=== PATIENT | female | born 1995 | race Caucasian/White ===

== ENCOUNTER 2020-08-12 09:36 | Day surgery (SDC) | payer SELFPAY ==
[~2020-08-12] VITALS: Ht 172.7 cm; Wt 137.0 kg
[2020-08-12 10:02] VITALS: BP 146/97; PULSE 91; TEMP 97.8
[2020-08-12] MEDS ORDERED: LEXAPRO 10MG10 MG PO (10:12)
[2020-08-12] MEDS ORDERED: PRIL40 PO (10:12)
[2020-08-12 11:45] VITALS: BP 118/81; PULSE 78; TEMP 98.1
--- NOTE | 2020-08-12 11:45 | NUR ---
Pt to [facility] via cart from ENDO. Pt drowsy, but awake. Pt ambulates to recliner with stand by assistance. Warm blanket provided. Sprite and pudding given per pt request. Will continue to monitor. Call light within reach.
[2020-08-12 12:00] VITALS: BP 124/79; PULSE 81
--- NOTE | 2020-08-12 12:00 | NUR ---
Pt continues to rest. Denies pain or nausea. Call light within reach.
[2020-08-12 12:15] VITALS: BP 121/74; PULSE 86
--- NOTE | 2020-08-12 12:15 | NUR ---
Pt continues to rest. Denies needs. Call light within reach.
--- NOTE | 2020-08-12 12:40 | NUR ---
Discharge instructions reviewed. Pt voices understanding. IV site discontinued with all parts intact. Pt up to dress. Call light within reach.
--- NOTE | 2020-08-12 12:45 | NUR ---
Pt escorted to private car via wheel chair. Pt accompanied home by her mother.
== END 2020-08-12 12:45 | disposition home or self-care (01) ==
LOC: SDCO 09:36
DX: K21.00 Gastro-esophageal reflux disease with esophagitis, without bleeding (principal); K29.30 Chronic superficial gastritis without bleeding; E66.9 Obesity, unspecified; Z88.1 Allergy status to other antibiotic agents; Z68.42 Body mass index [BMI] 45.0-49.9, adult; Z20.822 Contact with and (suspected) exposure to COVID-19
CPT/HCPCS: J2704; J7030

== ENCOUNTER 2023-08-16 09:28 | Day surgery (SDC) | payer OTHER ==
[~2023-08-16] VITALS: Ht 172.7 cm; Wt 144.5 kg
[~2023-08-16 09:28] MED LIST: LEXAPRO 10MG10 MG PO; LR 1,000 ML IV SCH; Ondansetron 4 MG/2 ML VIAL IV PRN; PRIL40 PO
[2023-08-16 10:00] VITALS: BP 146/102; PULSE 76; TEMP 97.3
[2023-08-16] MEDS ORDERED: TRANDATE 100MG100 MG PO (10:05)
[2023-08-16] MEDS ORDERED: PRENATAL PO (10:06)
[2023-08-16] MEDS ORDERED: ZOFRAN ODT4 MG PO (10:06)
[2023-08-16] MEDS ORDERED: MOTRIN 800800 MG/TAB PO (10:07)
--- NOTE | 2023-08-16 10:30 | NUR ---
The patient ambulated back to [facility] independently using a steady gait and appeared to tolerate the activity well. Vital signs obtained. Consent signed. 20G IV started in right hand with one stick, LR infusing without difficulty. Assessment completed. Home medications reconcilled. Warm blanket provided. Mother, Tiffany, brought back to be at her bedside. Call light is within reach. Denies any further needs at this time.
[2023-08-16 10:31] VITALS: BP 153/88
[2023-08-16] MEDS ORDERED: Lidocaine PF 2% (20 MG/ML) 5 ML VIAL ONE (11:11)
[2023-08-16 11:40] VITALS: BP 127/86; PULSE 73; TEMP 97.9
[2023-08-16 11:55] VITALS: BP 131/90; PULSE 74
[2023-08-16 12:10] VITALS: BP 137/80; PULSE 75
--- NOTE | 2023-08-16 12:40 | NUR ---
[id number]: PT TO [facility] BAY FROM [facility]O [facility] S/P EGD AND COLON WITH BX'S A&O, PLACED ON MONITOR, VSS ON RA DENIES COMPLAINT RECEIVED REPORT AND ASSUMED CARE OF PT FROM KATHIE MAY AT BEDSIDE PROVIDED FOOD/FLUIDS, TOLERATING WELL PT HAS REMAINED A&O, NAD, VSS ON RA, TOLERATING PO, IS WITHOUT SIGNIFICANT COMPLAINT, WITH STEADY GAIT BY THE END OF STAY IV D/C'D. D/C INSTRUCTIONS, FOLLOW UP REVIEWED AND HANDED TO PT. ALL QUESTIONS AND CONCERNS ADDRESSED TO PT SATISFACTION. TAKEN TO EXIT VIA W/C WITH ALL BELONGINGS AND PAPERWORK IN HAND, ASSISTED INTO PASSENGER SEAT OF POV. FAMILY TO DRIVE HOME.
== END 2023-08-16 12:30 | disposition home or self-care (01) ==
LOC: SDCO 09:28
DX: K21.00 Gastro-esophageal reflux disease with esophagitis, without bleeding (principal); R19.7 Diarrhea, unspecified; E66.01 Morbid (severe) obesity due to excess calories
CPT/HCPCS: J2704; J7120